=== PATIENT | female | born 1960 | race Caucasian/White ===

== ENCOUNTER → 2017-11-02 | Outpatient (CLI) | payer BC | LOC: RAD 09:30 | DX: M25.531 Pain in right wrist (principal) ==

== ENCOUNTER 2018-10-05 10:00 | Outpatient (RCR) | payer BC | END 2018-10-05 10:30 | disposition still patient (30) | LOC: PT 10:00 | DX: M25.562 Pain in left knee (principal); Z98.890 Other specified postprocedural states ==

== ENCOUNTER → 2020-06-20 | Outpatient (CLI) | payer BC | LOC: RAD 13:51 | DX: R06.02 Shortness of breath (principal); R05 Cough ==